=== PATIENT | female | born 1995 | race Caucasian/White ===

== ENCOUNTER 2021-07-07 22:08 | Inpatient (IN) | payer OTHER, SELFPAY ==
--- NOTE | 2021-07-07 22:29 | P.HP_ITS ---
H&P: HPI History of Present Illness Date/Time: 07/07/21 22:29 26 y/o G1 at 38 weeks with SROM. Known to have breech presentation. GBS neg. Good movement. No contractions. Chief Complaint: My water broke. Review of Systems Review of Systems: All systems reviewed & are unremarkable except as noted in HPI and below PMFSH Past Medical History Medical History Depression with anxiety Family History Family History Grandparent Polycystic kidney disease Type 2 diabetes mellitus Social History Social History Substance use: never Spiritual care concerns: No Meds Home Medications and Allergies Home Medications Medication Instructions Recorded Confirmed Type ferrous sulfate 06/21/21 History prenat.vits,alejandra,bcp-[id number]-llfyk 1 tablet 06/21/21 History [ #2] venlafaxine 150 mg PO QAM 06/21/21 06/21/21 History Allergies Allergy/AdvReac Type Severity Reaction Status Date / Time No Known Allergies Allergy Verified 06/21/21 12:25 Vital Signs AVSS Exam Const: Orientation/consciousness: patient oriented x3 Other: Well- developed, well-nourished female in no acute distress. Neck: Thyroid: thyroid normal Lymphatic: no lymphadenopathy noted (in neck, axilla or inguinal nodes) Resp: Effort & Inspection: normal respiratory effort Auscultation: clear to auscultation bilaterally Cardio: Rate: regular rate Rhythm: regular rhythm Heart sounds: S1 normal heart sound present and S2 normal heart sound present GI: Other: ABD: Soft, nontender, nondistended, gravid. No guarding or rebound tenderness. No hepatosplenomegaly. Bedside ultrasound performed by me confirms coni breech presentation. NST reactive. TOCO: no contractions : General: Yes no CVA tenderness Other: Cervix closed. RomPlus pos. Back/Spine/Pelvis: Back: no CVA tenderness Skin: General skin exam: normal color and no rashes or lesions noted Neuro: General: patient oriented x3 Extrem: Other: Extremities: nontender with no edema Psych: Mental Status: mental status grossly normal Affect: normal affect Assessment and Plan Assessment and plan (1) SROM (spontaneous rupture of membranes): Status: Acute (2) Term : Code(s): Z34.90 - Encounter for supervision of normal , unspecified, unspecified trimester Status: Acute (3) Breech presentation of fetus: Code(s): O32.1XX0 - Maternal care for breech presentation, not applicable or unspecified Status: Acute Assessment and Plan: A: IUP at 38 weeks with SROM, breech presentation. P: Offered primary cesaren. She understands risks of surgery to include risks of anesthesia, risks of pain, infection, bleeding, blood products, thromboembolic phenomena and damage to adjacent structures such as bowel, bladder, ureters, blood vessels and nerves. She understands all these risks and elects to proceed with surgery.
--- NOTE | 2021-07-07 22:34 | WPDHPUPDATE1 ---
History and Physical Update Update Date/Time: 07/07/21 22:34 History and Physical has been reviewed, including an updated exam of the patient. There are NO changes in the patient's condition. Risks, benefits, and alternatives have been discussed and questions answered. Patient agrees to proceed with procedure.
[2021-07-07 22:41] VITALS: BMI 29.8
--- NOTE | 2021-07-07 22:44 | LDADM ---
This patient, Nayeli Ruelas, was admitted to Labor/Delivery/Recovery 119 on 07/07/21 at 22:08. Plans for labor, pain management and were discussed with patient. Patient/family oriented to hospital policies and general routines including ID bracelet, bed and alarms, visiting hours, pain management, procedures, bathroom and other care routines, personal items, smoking policy, room service/diet and guest tray routines, security routines, and visiting hours. Patient/Family are encouraged to report perceived risks to care and to ask questions if they do not understand what they are told or what they should do. See OBIX for further documentation.
[2021-07-07 22:46] LABS: Basophils Percent Auto 0.2 % (0.2-1.2); Eosinophils Absolute Auto 0.1 K/mm3 (0-0.3); Eosinophils Percent Auto 0.9 % (0-4.4); Hematocrit 32.4 % (37.0-47.0); Hemoglobin 10.6 g/dL (12.0-15.0); Immature Granulocyte Absolute 0.09 K/mm3 (0.00-0.031); Immature Granulocyte Percent A 0.8 % (0-0.5); Lymphocytes Absolute Auto 2.17 K/mm3 (0.9-3.2); Lymphocytes Percent Auto 18.7 % (18.3-44.2); Mean Corpuscular HGB Conc 32.7 g/dl (32-36); Mean Corpuscular Hemoglobin 29.4 pg (26-34); Mean Corpuscular Volume 89.8 fl (80-100); Mean Platelet Volume 11.2 fl (7.4-10.4); Monocytes Absolute Auto 1.3 K/mm3 (0.1-0.6); Monocytes Percent Auto 10.9 % (2.6-8.5); Neutrophils Percent Auto 68.5 % (45.5-73.1); Platelet Count Result 191 k/mm3 (150-375); Red Blood Count 3.61 M/mm3 (4.2-5.4); Red Cell Distribution Width 14.2 % (11.5-14.5); White Blood Count 11.6 K/mm3 (4.5-10.0)
[2021-07-07] MEDS: LACTATED RINGERS 1,000 ML 125 ML IV CONT (22:47)
--- NOTE | 2021-07-07 22:47 | P.PNAN_ITS ---
Anes - Initial Pre Proc Eval Procedure: Operation Date: 07/07/21 23:45 Proposed Procedures p Section - Lobo Bravo MD Operation Date: 07/14/21 07:30 Proposed Procedures p Section - Jose David Bravo MD Date/Time: 07/07/21 22:47 Surgeon: Jose David Bravo MD Pre Op Diagnosis: SROM/ Patient Data Age: 26 Gender: F Height: 1.5 m Weight: 67 kg Allergies Allergy/AdvReac Type Severity Reaction Status Date / Time No Known Allergies Allergy Verified 06/21/21 12:25 Home Medications Medication Instructions Recorded Confirmed Type ferrous sulfate 06/21/21 History prenat.vits,alejandra,rjx-dqui-vonru 1 tablet 06/21/21 History [ #2] venlafaxine 150 mg PO QAM 06/21/21 06/21/21 History Laboratory Tests 07/07/21 07/07/21 22:38 22:38 WBC Pending RBC Pending Hgb Pending Hct Pending MCV Pending MCH Pending MCHC Pending RDW Pending Plt Count Pending MPV Pending Immature Gran % (Auto) Pending Neut % (Auto) Pending Lymph % (Auto) Pending [place] % (Auto) Pending Eos % (Auto) Pending Baso % (Auto) Pending Lymph # (Auto) Pending [place] # (Auto) Pending Eos # (Auto) Pending Baso # (Auto) Pending Abs Immat Gran (auto) Pending Absolute Neuts (auto) Pending Absolute Nucleated RBC Pending Nucleated RBC % Pending RPR Pending Patient hx anesthesia problems: none Family hx anesthesia problems: none PMFSH Past Medical History Medical History Depression with anxiety Family History Family History Grandparent Polycystic kidney disease Type 2 diabetes mellitus Social History Social History Smoking status: Never smoker Substance use: never Spiritual care concerns: No Anes - Eval Final PreProcedure Day of Procedure 07/07/21 22:47 Patient weight: overweight Heart: regular rate and rhythm Lungs: clear to auscultation Airway: Mallampati scale class II Neurological: alert and oriented Last oral intake: >/= 8 hours ASA classification: II Emergent: no Anesthetic plan: proceed Anesthesia type and monitoring: regional spinal and standard monitoring Informed Consent: The patient's anesthetic plan and its attendant risks and benefits were discussed with the patient/family/POA. Questions were solicited and answers provided to the satisfaction of the patient/family/POA.
[2021-07-07 22:49] VITALS: BP 146/84; PULSE 88
[2021-07-07] MEDS: ceFAZolin 2 GM/D5W 50 ML 2 GM/50 ML BAG IVPB (22:58)
[2021-07-07 23:00] VITALS: TEMP 36.4
--- NOTE | 2021-07-07 23:50 | PM.OBPRVD ---
OB - Delivery Note Procedure Delivery date: 07/07/21 Procedure: Procedures Operation Date: 07/07/21 23:45 <No data on this case meets the specified criteria> Operation Date: 07/14/21 07:30 <No data on this case meets the specified criteria> Primary low transverse delivery Delivery monitor: external FHT and external uterine Route of delivery: Specimen: Yes (cord blood) Quantitative Blood Loss (ml): 550 Anesthesia type: Spinal Disposition: PACU Complications: None Narrative: The patient was taken to the operating room where she was prepared and draped in the usual sterile fashion in dorsal supine position with a leftward tilt. She received cefazolin preoperatively. Spinal anesthesia was found to be adequate. A Pfannenstiel skin incision was made and carried through to the underlying layer of the fascia. The fascia was incised in the midline and the incision was extended laterally. The fascia was dissected free of the underlying rectus muscles. The rectus muscles were in the midline. The peritoneum was identified, tented up and entered sharply. The peritoneal incision was extended superiorly and inferiorly with good visualization of the bladder. The bladder blade was placed. The vesicouterine peritoneum was identified, tented up and entered sharply. The incision was extended laterally and the bladder flap was developed. The bladder blade was replaced. The uterus was then incised sharply in a transverse fashion along the lower uterine segment. The incision was extended laterally. The 's heels were grasped and the breech was delivered to the level of the scapulae. The arms were swept across the chest and delivered. The head was gently flexed and easily delivered. The nose and mouth were bulb suctioned. After a delay, the cord was clamped and cut. The was handed off the field. Cord blood was collected. The placenta was removed manually and was passed off the field. The uterus was exteriorized and cleared of all clots and debris. The uterine incision was reapproximated using 0 Monocryl in a running, locked fashion. A second, imbricating layer of the same suture was placed. Excellent hemostasis resulted as did excellent reapproximation of the normal anatomy. The uterus was returned the abdomen. The pelvis was irrigated copiously with warmed normal saline. Rigorous hemostasis was assured. The fascial layer was reapproximated using 0 Vicryl in a running fashion. The skin was closed with a running, subcuticular stitch of 4 0 Vicryl. Dermaflex was applied externally. Sponge, lap, needle and instrument counts were correct. The patient was taken to the recovery room in stable condition. The went to the nursery in stable condition. I was present and scrubbed the entire procedure. [place] Baby Date of : 07/07/21 Time of : 23:19 Weeks of gestation at delivery: 38 Infant gender: Male Weight (pounds): 7 Weight (ounces): 2 presentation: breech (complete) Placenta delivery description: Manual Removal and Normal Configuration cord vessel description: 3 Vessels and Delayed Cord Clamping score one minute: 9 score five minutes: 9
[2021-07-07 23:53] VITALS: RESP 18; TEMP 36.2
--- NOTE | 2021-07-07 23:53 | PM.OBDSVD ---
DS: Admitting Diagnosis Admitting Diagnosis IUP at 38 weeks SROM Breech presentation DS: Discharge Diagnosis Discharge Diagnosis (1) Breech presentation of fetus: Code(s): O32.1XX0 - Maternal care for breech presentation, not applicable or unspecified Status: Acute (2) Term : Code(s): Z34.90 - Encounter for supervision of normal , unspecified, unspecified trimester Status: Acute (3) SROM (spontaneous rupture of membranes): Status: Acute OB - DS: Summary OB Procedures : Ultrasound OB Procedures Intrapartum: low cervical, transverse OB Procedures: : None Peripartum Data Procedures: Procedures Operation Date: 07/07/21 23:45 <No data on this case meets the specified criteria> Operation Date: 07/14/21 07:30 <No data on this case meets the specified criteria> Primary LTCS DS: Data Data Completed and Pending Labs on day of discharge: Labs from last 24 hours 07/07/21 07/07/21 22:38 22:38 WBC 11.6 H RBC 3.61 L Hgb 10.6 L Hct 32.4 L MCV 89.8 MCH 29.4 MCHC 32.7 RDW 14.2 Plt Count 191 MPV 11.2 H Immature Gran % (Auto) 0.8 H Neut % (Auto) 68.5 Lymph % (Auto) 18.7 [place] % (Auto) 10.9 H Eos % (Auto) 0.9 Baso % (Auto) 0.2 Lymph # (Auto) 2.17 [place] # (Auto) 1.3 H Eos # (Auto) 0.1 Baso # (Auto) 0.0 Abs Immat Gran (auto) 0.09 H Absolute Neuts (auto) 8.0 H Absolute Nucleated RBC 0.0 Nucleated RBC % 0.0 RPR Pending Discharge Plan Discharge Attending physician on discharge: Jose David Bravo Discharging Clinician: Lobo Bravo Patient Disposition: Home, Self-Care Activity: pelvic rest Diet: regular Wound Care Instructions: incision open to air Discharge Instructions: Call or return if temperature above 100.4? F, increased abdominal pain, increased vaginal bleeding or any new problems. Stand Alone Forms: General Discharge Information Follow-up/Referrals: Jose David Bravo MD [Physician] - 4 Weeks Discharge Medications: New ibuprofen 600 mg tablet 600 mg PO Q6H PRN (Reason: cramps) Qty: 30 RF: 0 hydrocodone-acetaminophen 5-325 mg tablet 1 - 2 tablet PO Q6H PRN (Reason: pain) Qty: 30 RF: 0 Continued venlafaxine 150 mg Capsule,Extended Release 24hr 150 mg PO QAM RF: 0 #2 Tablet 1 tablet RF: 0 ferrous sulfate RF: 0 Date of admission: 07/07/21 22:08 Primary Care Provider: [facility]ON[facility],Healthcare Admitting Provider: Jose David Bravo Attending physician on admission: Jose David Bravo Condition: Stable
[2021-07-07 23:55] VITALS: BP 126/73; PULSE 87; PULSE 89; O2SAT 100
[2021-07-08] VITALS (46 sets, daily range): BP systolic 124–155; BP diastolic 73–96; PULSE 57–80; RESP 13–20; TEMP 36.2–36.8; O2SAT 97–100
[2021-07-08] MEDS: ONDANSETRON INJ 4 MG/2 ML VIAL IV PUSH (00:03)
[2021-07-08] MEDS: OXYTOCIN 30 UNITS/NS 500 ML 30 UNITS/500 ML BAG 125 UNITS IV CONT (00:08)
[2021-07-08] MEDS: fentaNYL CITRATE INJ (*CRX) 100 MCG/2 ML VIAL 25 MCG IV PUSH (01:57)
--- NOTE | 2021-07-08 02:36 | OBPPTRN ---
Patient transferred to post room #285 via bed. Baby remains in nursery level 2 at this time. Support person present. Oriented to unit, room, information board, rooming in, admission packet and security measures. Patient verbalizes understanding.
[2021-07-08] MEDS: KETOROLAC 30 MG/ML VIAL (*BKC) IV PUSH (03:08)
[2021-07-08] MEDS: DEXTROSE 5%/0.45% SOD CHL 1,000 ML 125 ML IV CONT (05:27)
[2021-07-08 05:39] LABS: Basophils Absolute Auto 0.1 K/mm3 (0.0-0.1); Basophils Percent Auto 0.4 % (0.2-1.2); Eosinophils Absolute Auto 0.1 K/mm3 (0-0.3); Eosinophils Percent Auto 0.6 % (0-4.4); Hemoglobin 10.1 g/dL (12.0-15.0); Immature Granulocyte Percent A 0.7 % (0-0.5); Lymphocytes Absolute Auto 2.12 K/mm3 (0.9-3.2); Lymphocytes Percent Auto 15.8 % (18.3-44.2); Mean Corpuscular HGB Conc 32.6 g/dl (32-36); Mean Corpuscular Hemoglobin 29.6 pg (26-34); Mean Corpuscular Volume 90.9 fl (80-100); Mean Platelet Volume 11.5 fl (7.4-10.4); Monocytes Absolute Auto 1.4 K/mm3 (0.1-0.6); Monocytes Percent Auto 10.2 % (2.6-8.5); Neutrophils Absolute Auto 9.7 K/mm3 (1.3-6.7); Neutrophils Percent Auto 72.3 % (45.5-73.1); Platelet Count Result 163 k/mm3 (150-375); Red Blood Count 3.41 M/mm3 (4.2-5.4); Red Cell Distribution Width 14.1 % (11.5-14.5); White Blood Count 13.4 K/mm3 (4.5-10.0)
[2021-07-08 06:00] LABS: Alanine Aminotransferase 13 U/L (4-35); Albumin Level 2.5 g/dL (3.5-5.1); Alkaline Phosphatase 75 U/L (38-126); Anion Gap 3 mmol/L (8-16); Aspartate Amino Transferase 29 U/L (14-36); Bilirubin,Total < 0.1 mg/dL (0.2-1.3); Blood Urea Nitrogen 10 mg/dL (7-17); Calcium 8.5 mg/dL (8.4-10.2); Carbon Dioxide 22 mmol/L (22-30); Chloride 103 mmol/L (98-107); Estimated Glomerular Filt Rate > 60; Glucose 92 mg/dL (65-110); Potassium 4.5 mmol/L (3.4-5.0); Sodium 128 mmol/L (137-145)
[2021-07-08 07:39] LABS: Rapid Plasma Reagin Non-Reactive (NonReactive)
--- NOTE | 2021-07-08 10:30 | PCDIET ---
consult with pt., discussed initiating pumping due to transfer. Reviewed pumping schedule, nipple care, and collection and storage of breast milk. Mother will call out when ready to begin pumping.
[2021-07-08] MEDS: DOCUSATE SODIUM 100 MG CAPSULE PO ×2 (10:37→17:31)
[2021-07-08] MEDS: IBUPROFEN 600 MG TABLET PO ×2 (10:38→17:31)
[2021-07-08] MEDS: MULTIVIT/MIN/PREN/FOL AC/IRON TABLET 1 TAB PO (10:38)
[2021-07-08] MEDS: VENLAFAXINE HCL XR 75 MG CAP.ER.24H 150 MG PO (10:38)
--- NOTE | 2021-07-08 11:54 | WPDANLDPN2 ---
Anes-Prog Note L&D Date/Time: 07/08/21 11:54 Comfortable throughout: section Neuraxial method: spinal Epidural/Spinal procedure site: clean & non-tender Neuro status: Neuro function grossly intact. Cardiovascular status: normal Respiratory status: normal Airway patency: baseline Mental status: baseline Post-Op hydration status: normal (catheter still in place. ) Vital Signs: Last Vital Signs Temp 36.5 C 07/08/21 07:45 Pulse 73 07/08/21 07:45 Resp 16 07/08/21 07:45 BP 139/85 07/08/21 07:45 Pulse Ox 100 07/08/21 07:45 Pain score (VAS): 0 I/O: Intake & Output 07/07/21 07/08/21 07/08/21 23:59 07:59 15:59 Intake Total 1050 500 Output Total 1340 150 Balance 1050 -1340 350 Post-procedural complaints: none Patient feedback: Patient satisfied with anesthetic care.
--- NOTE | 2021-07-08 11:55 | WPDANLDNPN2 ---
Anes-Prog Note L&D-Neuraxial Date/Time: 07/08/21 11:55 Neuraxial medications: intrathecal PF morphine Opiod-related complaints: none Patient feedback: Patient satisfied with post-operative pain management.
--- NOTE | 2021-07-08 12:30 | PC.NURSE ---
Mother called out for assist with feeding, reporting has been using the nipple shield for most feedings. Mother states has had one consistent feeding at 0430, other feedings have been sleepy with little suckling noted. Discussed nipple shield precautions and possible complications. Instructions given on application and cleaning of shield. Patient able to return demonstration on proper application of shield. Discussed the need to initiate pumping if infant continues to nurse with the shield. Patient verbalizes understanding. is able to freely thrust tongue past gum ridge and flange both lips. Skin is intact on both nipples, no redness and bruising noted. Reviewed feeding cues, frequencies, duration of feedings, feeding elimination flow sheet, and signs of adequate intake. Demonstrated stimulation techniques to wake infant for feeding. Assisted with to breast. Reviewed positioning/alignment in cross cradle, holding breast in ?U? hold and guided asymmetrical latch on. Discussed rational for each. Several attempts before infant able to latch correctly. Reviewed signs of a correct latch, effective nursing and suck swallow ratio. made a few attempts to suckle within the 15 minutes at breast. stimulated to suck with no response from . Reviewed the difference of effective vs ineffective nursing. Advised at this feeding is not effectively feeding with no milk transfer. Feeding options discussed. Mother quickly states she plans to bottle feed and . Suggested mother give 15-20 milks after each feeding until infant is feeding effectively with milk transfer noted.
--- NOTE | 2021-07-08 13:30 | PC.NURSE ---
Breast pump provided due to ineffective feeding and nipple shield use. . Instructions given on breast pump care and usage, pumping schedule, nipple care, and collection and storage of breast milk. Encouraged [id number], breast massage and manual expression to stimulate supply. Assessed patient for correct flange size, placement and draw. Patient verbalizes and demonstrates understanding of instructions.
[2021-07-08] MEDS: HYDROcodone/acetaminophen (*CRX) 5-325 MG TABLET 1 TAB PO ×2 (13:57→17:31)
--- NOTE | 2021-07-08 14:00 | PC.NURSE ---
Breast pump provided due to transfer. Instructions given on breast pump care and usage, pumping schedule, nipple care, and collection and storage of breast milk. Encouraged [id number], breast massage and manual expression to stimulate supply. Pumping log provided and reviewed. Assessed patient for correct flange size, placement and draw. Patient verbalizes and demonstrates understanding of instructions.
--- NOTE | 2021-07-09 07:29 | PM.OBPNVD ---
OB - PN: Subj Subjective Date/time seen: 07/09/21 07:29 Narrative: Pain OK. Tolerating diet. Baby was transferred to [facility], is doing well. Would like to go home. OB - PN: Obj Data Labs CBC & Chem 7: 07/08/21 05:28 07/08/21 05:28 Labs: Laboratory Results - last 24 hr 07/07/21 22:38 RPR Non-reactive OB - PN A/P Plan Comments: A: POD#2, doing well. P: Home to f/u 4 weeks. Exam Narrative: AVSS ABD soft, nontender, fundus firm. Incision c/d/i. EXT nontender
[2021-07-09] MEDS: VENLAFAXINE HCL XR 75 MG CAP.ER.24H 150 MG PO (08:06)
[2021-07-09] MEDS: DOCUSATE SODIUM 100 MG CAPSULE PO (08:07)
[2021-07-09] MEDS: MULTIVIT/MIN/PREN/FOL AC/IRON TABLET 1 TAB PO (08:07)
[2021-07-09] MEDS: HYDROcodone/acetaminophen (*CRX) 5-325 MG TABLET 1 TAB PO (08:07)
[2021-07-09] MEDS: IBUPROFEN 600 MG TABLET PO (08:07)
[2021-07-09 08:08] VITALS: BP 133/83; PULSE 76; RESP 18; TEMP 36.6
[2021-07-11 09:04] VITALS: BP 142/86; PULSE 79; RESP 20; TEMP 37.2; O2SAT 100
== END 2021-07-09 10:10 | disposition home or self-care (01) | DRG 540 ==
LOC: ANHLDR 23:55 → ANHOB2 07-08 06:59 → ANHLDR 07-12 11:38 → ANHOB2 07-12 11:38
PROVIDERS: Admitting Provider Obstetrics & Gynecology; Visit Provider Obstetrics & Gynecology
PROC: 10D00Z1 Extraction of Products of Conception, Low, Open Approach (ICD-10-PCS; CPT 59514; principal; 2021-07-07 23:45)
DX: O32.1XX0 Maternal care for breech presentation, not applicable or unspecified (principal); Z3A.38 38 weeks gestation of pregnancy; Z37.0 Single live birth
CPT/HCPCS: 36415; 80053; 85025; 86592; 86850; 86900; 86901; A9270; J0131; J0690; J1885; J2274; J2405; J2590; J3010; J7120